=== PATIENT | male | born 1990 | race Hispanic/Latino ===

== ENCOUNTER → 2018-01-03 20:19 | Outpatient (CLI) | payer OTHER, SELFPAY ==
--- NOTE | 2018-01-03 20:29 | DI.MRI.S_ITS ---
PROCEDURE: MR WRIST RT WO CON INDICATIONS: RIGHT DORSAL WRIST MASS TECHNIQUE: Noncontrast coronal proton density fast spin echo and T2 fast spin echo with fat saturation; coronal 3-D gradient echo, axial T1 spin echo and T2 fast spin echo with fat saturation, sagittal T1 spin echo through the wrist. COMPARISON: None. FINDINGS: Image quality: Excellent. Bones and cartilage: The carpal bones are normally aligned. No bone marrow contusions or fractures. No evidence for avascular necrosis. Overlying cartilage surfaces appear normal. Carpal ligaments: The scapholunate and lunotriquetral ligaments appear intact. In the absence of intra-articular contrast, the extrinsic carpal ligaments are not well identified. On sagittal images, the pisohamate ligament appears intact. Triangular fibrocartilage complex: The triangular fibrocartilage appears intact. The adjacent meniscal homolog appears normal in the absence of intra-articular contrast. The extensor carpi ulnaris tendon is normal in location and morphology. Tendons and soft tissues: The carpal tunnel structures appear normal, including the median nerve. The ulnar nerve appears normal within Guyon's canal. All six extensor tendon compartments demonstrate normal morphology, without pathologic tendon sheath fluid. No soft tissue ganglion cysts. No discrete soft tissue mass is seen. IMPRESSION: 1. No discrete wrist soft tissue mass or abnormal fluid collection. 2. No marrow edema. No fracture or dislocation. 3. No evidence of internal derangement. Dictated by: Luca Simpson M.D. on 01/04/2018 at 14:02 Approved by: Luca Simpson M.D. on 01/04/2018 at 14:27
== END ==
PROVIDERS: Visit Provider Orthopaedic Surgery
DX: M25.839 Other specified joint disorders, unspecified wrist (principal)
CPT/HCPCS: 73221; A9579